=== PATIENT | male | born 1985 | race American Indian/Alaskan Native ===

== ENCOUNTER 2018-10-16 22:05 | Emergency (ER) | payer SELFPAY ==
[2018-10-16 22:10] VITALS: BP 135/94
--- NOTE | 2018-10-16 22:17 | Event Note ---
ED Screening Note Date of service: 10/16/18 Time: 22:13 ED Screening Note: This is a 33 y.o. M. that presents to the ER with low back pain and chest discomfort for 1 week. PMH of depression and PTSD Denies SOB, palpitations, wheezing, cough, fever, or congestion. This initial assessment/diagnostic orders/clinical plan/treatment(s) is/are subject to change based on patients health status, clinical progression and re- assessment by fellow clinical providers in the ED. Further treatment and workup at subsequent clinical providers discretion. Patient/guardian urged not to elope from the ED as their condition may be serious if not clinically assessed and managed. Initial orders include:
[2018-10-16] MEDS ORDERED: ULTRAM PO ONE (23:53)
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
--- NOTE | 2018-10-17 00:48 | XRay Report ---
Left shoulder-3 views INDICATION: Generalized left shoulder pain for one week. COMPARISON: None. IMPRESSION: No acute osseous or soft tissue abnormality. No significant DJD. Signer Name: Vu Pablo MD Signed: 10/17/2018 12:44 AM Workstation Name: [id number]
--- NOTE | 2018-10-17 00:49 | XRay Report ---
CHEST 2 VIEWS INDICATION: chest wall pain. COMPARISON: None FINDINGS: Support devices: None. Heart: Within normal limits. Lungs/pleura: No acute air space or interstitial disease. No pneumothorax. Additional findings: None. IMPRESSION: 1. No acute findings. Signer Name: Vu Pablo MD Signed: 10/17/2018 12:45 AM Workstation Name: [id number] [id number]
== END 2018-10-17 00:58 | disposition home or self-care (01) ==
LOC: ED 22:05
DX: G89.29 Other chronic pain (principal); M25.512 Pain in left shoulder; F32.9 Major depressive disorder, single episode, unspecified; F43.10 Post-traumatic stress disorder, unspecified; F17.200 Nicotine dependence, unspecified, uncomplicated; F12.10 Cannabis abuse, uncomplicated
CPT/HCPCS: 71046